=== PATIENT | male | born 1990 ===

== ENCOUNTER 2016-08-31 22:10 | Emergency (ER) | payer OTHER ==
--- NOTE | 2016-08-31 22:29 | EDPHY ---
H & P Stated Complaint: worsening facial infection HPI/ROS: HPI CHIEF COMPLAINT: Left facial swelling HISTORY OF PRESENT ILLNESS: This patient is a very pleasant 26-year-old male, immunocompetent, no significant medical or surgical history presents to the emergency room with left cheek swelling and redness progressively getting worse over the last 48 hours. States that on August 27 he noticed little bit of pain to his left maxillary cheek region, and then on August 28 he developed swelling in the submandibular region he was seen by Dr. Spear with ENT yesterday and placed on Augmentin he has taken total of 3 doses. Came to the emergency room this evening as the left maxillary facial area redness and swelling is slightly worse. No trouble swallowing. Denies fever. Denies pain with extraocular eye movement of the left eye but does have pain inferior to left eye. No eyelid swelling. No proptosis. Past Medical History: No medical history Past Surgical History: Denies significant surgical history Social History: Denies daily use of drugs alcohol tobacco products Family History: Noncontributory ROS REVIEW OF SYSTEMS: A comprehensive 10 point review of systems is otherwise negative aside from elements mentioned in the history of present illness. Exam Constitutional triage nursing summary reviewed, vital signs reviewed, awake/ alert. Eyes normal conjunctivae and sclera, EOMI, PERRLA. HENT normal inspection, atraumatic, moist mucus membranes, no epistaxis, neck supple/ no meningismus, no raccoon eyes. Respiratory clear to auscultation bilaterally, normal breath sounds, no respiratory distress, no wheezing. Cardiovascular rate normal, regular rhythm, no murmur, no edema, distal pulses normal. Gastrointestinal soft, non-tender, no rebound, no guarding, normal bowel sounds, no distension, no pulsatile mass. Genitourinary no CVA tenderness. Musculoskeletal no midline vertebral tenderness, full range of motion, no calf swelling, no tenderness of extremities, no meningismus, good pulses, neurovascularly intact. Skin Left Face: Maxillary region, erythema mild tenderness and induration no fluctuance, left eye eyelids are normal, no proptosis, extraocular movements intact, submandibular region swelling and tenderness consistent lymphadenopathy , no significant swelling sub lingual, no signs of Phan's, pink, warm, & dry, no rash, skin atraumatic. Neurologic awake, alert and oriented x 3, AAOx3, moves all 4 extremities equally, motor intact, sensory intact, CN II-XII intact, normal cerebellar, normal vision, normal speech. Psychiatric normal mood/affect. Heme/Lymph/Immune no lymphadenopathy. Differential Diagnosis: Includes but is not limited to in a particular order facial cellulitis, MRSA infection deep space facial infection reactive lymphadenopathy, Medical Decision Making: Plan for patient IV establishment, blood work, CT face with IV contrast to further delineate this infection. Will also speak with ENT. Re-evaluation: CT scan of the face with IV contrast The results of the study are shows no abscess or significant fluid collection, there is reactive submandibular lymphadenopathy present, I would not know maxillary significant abscess or infection visualized on CT with IV contrast. The study was read by Dr. Jorge. I viewed the images myself on the PACS system. [id number]: I did go over this patient's case with Dr. Spear with ENT we reviewed his blood work and CT scan. He feels comfortable the patient going home. Will switch his antibiotic from Augmentin to clindamycin. 1st dose will be given here in the emergency room. Clindamycin prescription. I do recommend he eats yogurt and probiotics. Follows up with ENT on Saturday. However he does understand over the weekend if he gets worsening facial swelling, fever redness he needs return immediately to the emergency room this includes trouble swallowing, worsening neck swelling. He understands this. Source: Patient - Personal History Current Tetanus Diphtheria and Acellular Pertussis (TDAP): Yes - Medical/Surgical History Hx Asthma: No Hx Chronic Respiratory Disease: No Hx Diabetes: No Hx Cardiac Disease: No Hx Renal Disease: No Hx Cirrhosis: No Hx Alcoholism: No Hx HIV/AIDS: No Hx Splenectomy or Spleen Trauma: No - Social History Smoking Status: Never smoked Constitutional: Initial Vital Signs Temperature (C) 36.9 C 08/31/16 22:13 Heart Rate 90 08/31/16 22:13 Respiratory Rate 20 08/31/16 22:13 Blood Pressure 123/101 H 08/31/16 22:13 O2 Sat (%) 98 08/31/16 22:13 O2 Delivery Mode Room Air Allergies/Adverse Reactions: sulfamethoxazole [From Decra] Allergy (Verified 08/31/16 22:13) trimethoprim [From Decra] Allergy (Verified 08/31/16 22:13) Home Medications: Medication Instructions Recorded Augmentin 875 MG TAB (*) 08/31/16 Clindamycin HCl [Clindamycin] 300 mg PO TID #30 cap 09/01/16 Medical Decision Making - Diagnostics Imaging Results: Imaging Impressions Face CT 08/31/16 22:37 Impression: Lymphadenopathy in the neck, likely reactive to infection. No abscess is identified. I telephoned results to Dr. Olaf Solis at midnight. - Data Points Laboratory Results: Laboratory Results 08/31/16 22:49 08/31/16 22:49 08/31/16 08/31/16 22:49 22:49 WBC 6.72 10^3/uL 10^3/uL (3.80-9.50) RBC 5.60 10^6/uL 10^6/uL (4.40-6.38) Hgb 17.1 g/dL g/dL (13.7-17.5) Hct 47.3 % % (40.0-51.0) MCV 84.5 fL fL (81.5-99.8) MCH 30.5 pg pg (27.9-34.1) MCHC 36.2 g/dL g/dL (32.4-36.7) RDW 12.3 % % (11.5-15.2) Plt Count 208 10^3/uL 10^3/uL (150-400) MPV 10.4 fL fL (8.7-11.7) Neut % (Auto) 62.5 % % (39.3-74.2) Lymph % (Auto) 24.0 % % (15.0-45.0) [place] % (Auto) 10.6 % % (4.5-13.0) Eos % (Auto) 2.1 % % (0.6-7.6) Baso % (Auto) 0.7 % % (0.3-1.7) Nucleat RBC Rel Count 0.0 % % (0.0-0.2) Absolute Neuts (auto) 4.20 10^3/uL 10^3/uL (1.70-6.50) Absolute Lymphs (auto) 1.61 10^3/uL 10^3/uL (1.00-3.00) Absolute Monos (auto) 0.71 10^3/uL 10^3/uL (0.30-0.80) Absolute Eos (auto) 0.14 10^3/uL 10^3/uL (0.03-0.40) Absolute Basos (auto) 0.05 10^3/uL 10^3/uL (0.02-0.10) Absolute Nucleated RBC 0.00 10^3/uL 10^3/uL (0-0.01) Immature Gran % 0.1 % % (0.0-1.1) Immature Gran # 0.01 10^3/uL 10^3/uL (0.00-0.10) ESR 1 MM/HR MM/HR (0-15) Sodium 138 mEq/L mEq/L (134-144) Potassium 3.8 mEq/L mEq/L (3.5-5.2) Chloride 104 mEq/L mEq/L (97-110) Carbon Dioxide 24 mEq/l mEq/l (22-31) Anion Gap 10 mEq/L mEq/L (8-16) BUN 21 mg/dL mg/dL (7-23) Creatinine 1.1 mg/dL mg/dL (0.7-1.3) Estimated GFR > 60 Glucose 161 mg/dL H mg/dL (70-100) Calcium 9.3 mg/dL mg/dL (8.5-10.4) C-Reactive Protein 5.5 mg/L mg/L (<10.0) Medications Given: Discontinued Medications Sodium Chloride (Ns) 1,000 mls @ 0 mls/hr IV ONCE ONE PRN Reason: Wide Open Stop: 08/31/16 22:39 Last Admin: 08/31/16 22:51 Dose: 1,000 mls Departure - Departure Disposition: Home, Routine, Self-Care Clinical Impression: Facial cellulitis Condition: Good Instructions: Cellulitis (ED) Additional Instructions: 1. Stay well-hydrated drink lots of fluids. 2. Take antibiotics as prescribed I would also recommend taking yogurt and taking her antibiotics with food. 3. Follow up with ENT on Saturday. 4. Return immediately to the emergency room if he develops worsening facial swelling, redness or pain or fever trouble swallowing. Referrals: NONE *PRIMARY CARE P,. [Primary Care Provider] - As per Instructions Prescriptions: Clindamycin HCl [Clindamycin] 300 mg PO TID #30 cap
[2016-08-31] MEDS ORDERED: NS 1,000 ML IV ONE (22:38)
[2016-08-31] MEDS ORDERED: IOPAMIDOL (ISOVUE-300) 100 ML BTL IV ONE (22:57)
[2016-08-31 23:00] LABS: % IMMATURE GRANULYOCYTES 0.1 % (0.0-1.1); ABSOLUTE IMMATURE GRANULOCYTES 0.01 10^3/uL (0.00-0.10); ADD DIFF? NO; ADD MORPH? NO; ADD SCAN? NO; ATYPICAL LYMPHOCYTE FLAG 40 (0-99); FRAGMENT RBC FLAG 0 (0-99); HEMATOCRIT 47.3 % (40.0-51.0); HEMOGLOBIN 17.1 g/dL (13.7-17.5); LEFT SHIFT FLG 10 (0-99); LIPEMIA HEMOLYSIS FLAG 90 (0-99); MEAN CELL HEMOGLOBIN 30.5 pg (27.9-34.1); MEAN CELL HEMOGLOBIN CONCENTR. 36.2 g/dL (32.4-36.7); MEAN CELL VOLUME 84.5 fL (81.5-99.8); MEAN PLATELET VOLUME 10.4 fL (8.7-11.7); PLATELET CLUMPS FLAG 0 (0-99); PLATELET COUNT 208 10^3/uL (150-400); RED CELL DISTRIBUTION WIDTH 12.3 % (11.5-15.2)
[2016-08-31 23:12] LABS: SEDIMENTATION RATE 1 MM/HR (0-15)
[2016-08-31 23:25] LABS: ANION GAP 10 mEq/L (8-16); C-REACTIVE PROTEIN 5.5 mg/L (<10.0); CALCIUM 9.3 mg/dL (8.5-10.4); CARBON DIOXIDE 24 mEq/l (22-31); CHLORIDE 104 mEq/L (97-110); CREATININE 1.1 mg/dL (0.7-1.3); GLOMERULAR FILTRATION RATE > 60; GLUCOSE 161 mg/dL (70-100); POTASSIUM 3.8 mEq/L (3.5-5.2); SODIUM 138 mEq/L (134-144)
[2016-09-01] MEDS ORDERED: CLINDAMYCIN 600 MG/DEXTROSE 50 ML IV ONE (00:25)
[2016-09-01 01:03] VITALS: BP 130/75; PULSE 72; RESP 16; TEMP 98.2; O2SAT 95
== END 2016-09-01 01:02 | disposition home or self-care (01) ==
DX: L03.211 Cellulitis of face (principal)
CPT/HCPCS: 96365; Q9967